=== PATIENT | male | born 1960 | race Caucasian/White ===

== ENCOUNTER 2016-09-21 00:36 | Emergency (ER) | payer SELFPAY ==
[~2016-09-21] VITALS: Ht 182.9 cm; Wt 71.2 kg
[2016-09-21 01:55] LABS: ASPARTATE AMINO TRANSFERASE 21 U/L (15-37); BLOOD UREA NITROGEN 12 mg/dL (7-18)
[2016-09-21 02:24] VITALS: BP 130/87
== END 2016-09-21 04:18 | disposition home or self-care (01) ==
LOC: ED 03:09
DX: R30.0 Dysuria (principal); R10.9 Unspecified abdominal pain; Z88.0 Allergy status to penicillin; F17.200 Nicotine dependence, unspecified, uncomplicated
CPT/HCPCS: 36415; 80053; 81003; 85025; 93005; 99285

== ENCOUNTER 2016-11-22 21:40 | Emergency (ER) | payer SELFPAY ==
[~2016-11-22] VITALS: Ht 182.9 cm; Wt 74.8 kg
[2016-11-22 21:43] VITALS: BP 160/97
== END 2016-11-22 23:43 | disposition home or self-care (01) ==
LOC: ED 22:54
DX: B37.0 Candidal stomatitis (principal); N48.22 Cellulitis of corpus cavernosum and penis; F17.200 Nicotine dependence, unspecified, uncomplicated; Z88.0 Allergy status to penicillin
CPT/HCPCS: 99283

== ENCOUNTER 2016-11-27 13:02 | Emergency (ER) | payer SELFPAY ==
[~2016-11-27] VITALS: Ht 182.9 cm; Wt 73.8 kg
[2016-11-27 13:04] VITALS: BP 165/104
[2016-11-27] MEDS ORDERED: FAMOTIDINE 20 MG TABLET ONE (13:49)
[2016-11-27] MEDS ORDERED: FAMOTIDINE 20 MG TABLET PO ONE (14:00)
== END 2016-11-27 14:15 | disposition home or self-care (01) ==
LOC: ED 13:40
DX: L23.5 Allergic contact dermatitis due to other chemical products (principal); F32.9 Major depressive disorder, single episode, unspecified; Z88.0 Allergy status to penicillin
CPT/HCPCS: 99284; J7512; Q0177

== ENCOUNTER 2016-12-14 19:21 | Inpatient (IN) | payer OTHER ==
[~2016-12-14] VITALS: Ht 182.9 cm; Wt 78.0 kg
[2016-12-14] MEDS ORDERED: ONDANSETRON 2MG/ML, 2ML ONE (20:28)
[2016-12-14] MEDS ORDERED: MORPHINE SULFATE 4 MG/ML, 1ML ONE ×2 (20:28→21:18)
[2016-12-14] MEDS ORDERED: ONDANSETRON 2MG/ML, 2ML IVPush ONE (20:30)
[2016-12-14] MEDS ORDERED: OXYcodone/APAP 5/325MG TABLET PO ONE (20:30)
[2016-12-14] MEDS ORDERED: MORPHINE SULFATE 4 MG/ML, 1ML IVPush PRN (20:30)
[2016-12-14 20:54] LABS: ASPARTATE AMINO TRANSFERASE 26 U/L (15-37); BLOOD UREA NITROGEN 13 mg/dL (7-18)
[2016-12-14 20:58] LABS: HEMATOCRIT 44.1 % (39.2-51.8); HEMOGLOBIN 14.9 g/dL (13.7-18.0); WHITE BLOOD COUNT 10.4 x10^3/uL (3.4-10)
[2016-12-14] MEDS ORDERED: SODIUM CHLORIDE 0.9% 1,000ML IVBOLUS ONE (21:00)
[2016-12-14] MEDS ORDERED: DIPHENHYDRAMINE 50 MG/ML, 1ML ONE (21:20)
[2016-12-14] MEDS ORDERED: DIPHENHYDRAMINE 50 MG/ML, 1ML IVPush ONE (21:30)
[2016-12-14] MEDS ORDERED: CEFTAROLINE 600 MG in SODIUM CHLORIDE 0.9% 100 ML IV ONE (21:30)
[2016-12-14] MEDS ORDERED: ONDANSETRON ODT 4 MG PO PRN (22:00)
[2016-12-14] MEDS ORDERED: DOCUSATE 100 MG CAPSULE PO PRN (22:00)
[2016-12-14] MEDS ORDERED: HYDROcodone/APAP 5/325 TABLET PO PRN (22:00)
[2016-12-14] MEDS ORDERED: ENALAPRILAT 1.25 MG/ML, 2ML IVPush PRN (22:00)
[2016-12-14] MEDS ORDERED: CETIRIZINE 10 MG TABLET PO SCH (22:30)
[2016-12-14] MEDS ORDERED: DIPHENHYDRAMINE 25 MG CAPSULE PO PRN (23:00)
[2016-12-14] MEDS ORDERED: POTASSIUM CHLORIDE 20 MEQ TAB.ER.PRT PO ONE (23:00)
[2016-12-15 01:11] VITALS: BP 137/79
[2016-12-15] MEDS: ENOXAPARIN 40 MG/0.4 ML SQ SCH ×2 (01:25→21:10)
[2016-12-15 01:28] VITALS: BP 162/88
[2016-12-15 05:32] LABS: HEMATOCRIT 41.7 % (39.2-51.8); HEMOGLOBIN 14.3 g/dL (13.7-18.0); WHITE BLOOD COUNT 5.7 x10^3/uL (3.4-10)
[2016-12-15 05:56] LABS: BLOOD UREA NITROGEN 13 mg/dL (7-18)
[2016-12-15] MEDS ORDERED: CEFTAROLINE 600 MG in SODIUM CHLORIDE 0.9% 100 ML IV SCH (09:30)
[2016-12-15 10:10] VITALS: BP 146/89
[2016-12-15] MEDS: NICOTINE 14MG/24 HR PATCH.TD24 TD SCH (11:10)
[2016-12-15] MEDS: MINERA CRM, 60GM TP SCH ×3 (11:10→21:10)
[2016-12-15 14:15] VITALS: BP 122/79
[2016-12-15] MEDS: DIPHENHYDRAMINE 25 MG CAPSULE PO SCH ×2 (17:00→21:10)
[2016-12-15] MEDS: SODIUM CHLORIDE 0.9% 1,000 ML IV SCH (17:01)
[2016-12-15 21:04] VITALS: BP 120/65
[2016-12-15] MEDS: FAMOTIDINE 20 MG TABLET PO SCH (21:10)
[2016-12-16] MEDS: SODIUM CHLORIDE 0.9% 1,000 ML IV SCH ×3 (00:32→17:15)
[2016-12-16 00:33] VITALS: BP 125/72
[2016-12-16] MEDS: MINERA CRM, 60GM TP SCH ×4 (04:30→22:07)
[2016-12-16] MEDS ORDERED: LORazepam 1MG TABLET PO PRN (08:00)
[2016-12-16] MEDS: DIPHENHYDRAMINE 25 MG CAPSULE PO SCH ×3 (08:51→22:04)
[2016-12-16] MEDS: FAMOTIDINE 20 MG TABLET PO SCH ×2 (08:52→22:04)
[2016-12-16 09:02] VITALS: BP 148/85
[2016-12-16 12:18] LABS: RAPID PLASMA REAGIN Nonreactive (Nonreactive)
[2016-12-16] MEDS: NICOTINE 14MG/24 HR PATCH.TD24 TD SCH (13:26)
[2016-12-16 13:53] VITALS: BP 129/81
[2016-12-16 17:38] VITALS: BP 130/79
[2016-12-16 20:30] VITALS: BP 134/77
[2016-12-16] MEDS: ENOXAPARIN 40 MG/0.4 ML SQ SCH (22:07)
[2016-12-17 00:20] VITALS: BP 149/77
[2016-12-17] MEDS: SODIUM CHLORIDE 0.9% 1,000 ML IV SCH ×3 (01:26→17:28)
[2016-12-17] MEDS: MINERA CRM, 60GM TP SCH ×4 (04:30→23:00)
[2016-12-17 05:47] LABS: HEMATOCRIT 41.2 % (39.2-51.8)
[2016-12-17 05:54] LABS: BLOOD UREA NITROGEN 10 mg/dL (7-18)
[2016-12-17 07:13] VITALS: BP 138/76
[2016-12-17] MEDS: FAMOTIDINE 20 MG TABLET PO SCH ×2 (09:07→21:27)
[2016-12-17] MEDS: DIPHENHYDRAMINE 25 MG CAPSULE PO SCH ×3 (09:07→21:27)
[2016-12-17] MEDS: NICOTINE 14MG/24 HR PATCH.TD24 TD SCH (13:08)
[2016-12-17 13:41] VITALS: BP 128/65
[2016-12-17 20:43] VITALS: BP 132/73
[2016-12-17] MEDS ORDERED: ENOXAPARIN 40 MG/0.4 ML SQ SCH (22:00)
[2016-12-18] MEDS: SODIUM CHLORIDE 0.9% 1,000 ML IV SCH ×2 (01:33→10:00)
[2016-12-18 01:45] VITALS: BP 139/76
[2016-12-18] MEDS: MINERA CRM, 60GM TP SCH ×2 (04:52→11:00)
[2016-12-18 06:53] VITALS: BP 152/85
[2016-12-18] MEDS: FAMOTIDINE 20 MG TABLET PO SCH (09:25)
[2016-12-18] MEDS: DIPHENHYDRAMINE 25 MG CAPSULE PO SCH (09:27)
[2016-12-18] MEDS ORDERED: FAMO20TA7 PO (09:41)
[2016-12-18] MEDS ORDERED: DIPH25CA61 PO (09:41)
[2016-12-18] MEDS ORDERED: MINE454C2 TP (09:48)
[2016-12-18 10:03] VITALS: BP 152/85
[2016-12-18 13:20] VITALS: BP 138/82
[2016-12-19 03:07] LABS: F082-IgE LATEX <0.10 kU/L (Class 0); F085-IgE CELERY <0.10 kU/L (Class 0)
== END 2016-12-18 15:41 | disposition home or self-care (01) | DRG 607 ==
LOC: ED 20:30 → EDIP 21:47 → 5SO 12-15 00:17 → 3NE 12-16 17:27
PROVIDERS: ADMIT Hospitalist; ATTEND Hospitalist
DX: R21 Rash and other nonspecific skin eruption (principal); E87.6 Hypokalemia; R03.0 Elevated blood-pressure reading, without diagnosis of hypertension; F17.210 Nicotine dependence, cigarettes, uncomplicated; L40.4 Guttate psoriasis; D72.829 Elevated white blood cell count, unspecified
CPT/HCPCS: 36415; 80048; 80053; 81001; 82785; 84550; 85025; 85651; 86003; 86063; 86592; 96361; 96365; 96366; 96375; J0712; J1650; J2405; J1200; J7030; J7512; Q0163

== ENCOUNTER 2017-01-02 17:53 | Inpatient (IN) | payer MEDICAID, OTHER ==
[~2017-01-02] VITALS: Ht 182.9 cm; Wt 72.7 kg
[~2017-01-02 17:53] MED LIST: DIPH25CA61 PO; FAMO20TA7 PO; MINE454C2 TP
[2017-01-02 18:35] LABS: HEMATOCRIT 45.7 % (39.2-51.8); HEMOGLOBIN 15.5 g/dL (13.7-18.0); WHITE BLOOD COUNT 8.8 x10^3/uL (3.4-10)
[2017-01-02 18:46] LABS: BLOOD UREA NITROGEN 28 mg/dL (7-18)
[2017-01-02] MEDS ORDERED: CLINDAMYCIN PMX 300MG/50ML 50 ML IV ONE (19:30)
[2017-01-02] MEDS ORDERED: ZOLPIDEM 5MG TABLET PO PRN (20:00)
[2017-01-02] MEDS: CLINDAMYCIN PMX 600MG/50ML 50 ML IV SCH (20:00)
[2017-01-02] MEDS ORDERED: ACETAMINOPHEN 325 MG TABLET PO PRN (20:00)
[2017-01-02] MEDS ORDERED: ONDANSETRON 2MG/ML, 2ML IVPush PRN (20:00)
[2017-01-02] MEDS: SODIUM CHLORIDE FLUSH 10ML SYR IVF SCH (21:00)
[2017-01-02 23:51] VITALS: BP 154/89
[2017-01-03 01:50] VITALS: BP 106/61
[2017-01-03] MEDS: CLINDAMYCIN PMX 600MG/50ML 50 ML IV SCH ×2 (04:05→12:40)
[2017-01-03] MEDS: HYDROCORTISONE CRM 2.5%, 20GM TP SCH ×2 (05:22→18:00)
[2017-01-03 05:50] LABS: HEMATOCRIT 43.2 % (39.2-51.8); HEMOGLOBIN 14.8 g/dL (13.7-18.0); WHITE BLOOD COUNT 6.5 x10^3/uL (3.4-10)
[2017-01-03 08:07] VITALS: BP 115/79
[2017-01-03] MEDS: SODIUM CHLORIDE FLUSH 10ML SYR IVF SCH ×2 (09:47→22:35)
[2017-01-03 14:34] VITALS: BP 85/52
[2017-01-03 15:10] VITALS: BP 113/68
[2017-01-03] MEDS ORDERED: AZTREONAM 2 GM in DEXTROSE 5% 100 ML IV SCH (17:00)
[2017-01-03] MEDS: MEROPENEM 1 GM in SODIUM CHLORIDE 0.9% 100 ML IV SCH (17:22)
[2017-01-03 19:25] VITALS: BP 106/56
[2017-01-03] MEDS ORDERED: ZOLPIDEM 5MG TABLET PO PRN (20:00)
[2017-01-03] MEDS ORDERED: ONDANSETRON 2MG/ML, 2ML IVPush PRN (20:00)
[2017-01-03] MEDS ORDERED: ENOXAPARIN 40 MG/0.4 ML SQ SCH (20:00)
[2017-01-03] MEDS ORDERED: ACETAMINOPHEN 325 MG TABLET PO PRN (20:00)
[2017-01-03] MEDS: LACTOBACILLUS CHEW TABLET PO SCH (22:35)
[2017-01-04 00:15] VITALS: BP 115/65
[2017-01-04] MEDS: MEROPENEM 1 GM in SODIUM CHLORIDE 0.9% 100 ML IV SCH ×2 (00:40→09:15)
[2017-01-04 05:51] LABS: HEMATOCRIT 41.6 % (39.2-51.8); HEMOGLOBIN 14.1 g/dL (13.7-18.0)
[2017-01-04] MEDS: HYDROCORTISONE CRM 2.5%, 20GM TP SCH ×2 (06:00→16:26)
[2017-01-04 06:36] LABS: ASPARTATE AMINO TRANSFERASE 22 U/L (15-37); BLOOD UREA NITROGEN 16 mg/dL (7-18)
[2017-01-04 08:10] VITALS: BP 114/75
[2017-01-04] MEDS: SODIUM CHLORIDE FLUSH 10ML SYR IVF SCH (09:00)
[2017-01-04] MEDS: LACTOBACILLUS CHEW TABLET PO SCH ×2 (09:15→16:26)
[2017-01-04] MEDS ORDERED: FLU VACC QS2017-18 (36MOS+) UP/PF 0.5 ML IM-VACC ONE (11:30)
[2017-01-04] MEDS ORDERED: PNEUMOC 13-VALENT VACC, 0.5 ML IM-VACC ONE (11:30)
[2017-01-04 13:38] VITALS: BP 119/80
[2017-01-04] MEDS ORDERED: HYDR25TA11 PO (17:51)
[2017-01-04 18:26] VITALS: BP 137/90
== END 2017-01-04 18:40 | disposition home or self-care (01) | DRG 728 ==
LOC: ED 19:38 → EDIP 19:46 → 4NOR 21:55
PROVIDERS: ADMIT Internal Medicine; ATTEND Internal Medicine
DX: N49.2 Inflammatory disorders of scrotum (principal); F17.210 Nicotine dependence, cigarettes, uncomplicated; L27.0 Generalized skin eruption due to drugs and medicaments taken internally; N48.89 Other specified disorders of penis; N43.3 Hydrocele, unspecified; Z88.0 Allergy status to penicillin; Z88.2 Allergy status to sulfonamides
CPT/HCPCS: 36415; 76870; 80048; 80053; 81003; 82040; 85025; 87040; 90686; 93975; 96365; 96375; J1650; J2185; G0009

== ENCOUNTER 2017-08-18 17:59 | Emergency (ER) | payer MEDICAID ==
[~2017-08-18] VITALS: Ht 182.9 cm; Wt 81.2 kg
[~2017-08-18 17:59] MED LIST changes: +HYDR25TA11 PO
[2017-08-18 18:11] VITALS: BP 142/86
[2017-08-18 20:17] LABS: MICROSCOPIC NOT IND
== END 2017-08-18 20:37 | disposition home or self-care (01) ==
LOC: ED 20:37
DX: N48.1 Balanitis (principal); F32.9 Major depressive disorder, single episode, unspecified; F17.200 Nicotine dependence, unspecified, uncomplicated
CPT/HCPCS: 81003; 99283

== ENCOUNTER 2019-02-06 15:09 | Emergency (ER) | payer MEDICAID ==
[~2019-02-06] VITALS: Ht 182.9 cm; Wt 75.8 kg
[~2019-02-06 15:09] MED LIST changes: +HYDR-826 PO; -HYDR25TA11 PO; -MINE454C2 TP; +MINERIN CREME454 GM TP
[2019-02-06 15:17] VITALS: BP 113/77
== END 2019-02-06 16:45 | disposition home or self-care (01) ==
LOC: ED 16:16
DX: J02.8 Acute pharyngitis due to other specified organisms (principal); B34.9 Viral infection, unspecified; J06.9 Acute upper respiratory infection, unspecified
CPT/HCPCS: 71046; 87081; 87880; 99284

== ENCOUNTER 2020-03-06 13:20 | Emergency (ER) | payer MEDICAID ==
[~2020-03-06] VITALS: Ht 182.9 cm; Wt 76.5 kg
--- NOTE | 2020-03-06 13:49 | NUR ---
PT C/O RIGHT KNEE PAIN FROM A FALL THAT HAPPENED 2 NIGHTS AGO. PT STATES [place]. HE FELT A POPPING OR TEARING SENSATION IN HIS KNEE WHEN IT HAPPENED. PT HAVING TROUBLE WALKING SINCE. PAIN 5/10 WHEN NOT MOVING.
[2020-03-06] MEDS ORDERED: IBUPROFEN 800 MG TABLET PO ONE (14:30)
[2020-03-06] MEDS ORDERED: IBUPROFEN 800 MG TABLET ONE (14:36)
--- NOTE | 2020-03-06 14:38 | NUR ---
PT MEDICATED PER MAY. ICE PACK PLACED.
[2020-03-06 16:14] VITALS: BP 111/79
--- NOTE | 2020-03-06 16:14 | NUR ---
BREAK RN: PT DISCHARGED FOR PRIMARY RN.
== END 2020-03-06 16:16 | disposition home or self-care (01) ==
LOC: ED 14:34
DX: M25.461 Effusion, right knee (principal); F17.210 Nicotine dependence, cigarettes, uncomplicated; Z90.89 Acquired absence of other organs
CPT/HCPCS: 99283